=== PATIENT | male | born 1980 | race African-American/Black ===

== ENCOUNTER 2021-02-20 05:14 | Emergency (ER) | payer SELFPAY ==
[2021-02-20] MEDS ORDERED: Bacitracin 1 PK ONE (06:02)
== END 2021-02-20 06:00 ==
LOC: ERS 05:14
DX: S01.01XD Laceration without foreign body of scalp, subsequent encounter (principal); S80.212A Abrasion, left knee, initial encounter; X58.XXXD Exposure to other specified factors, subsequent encounter
CPT/HCPCS: 99283